=== PATIENT | female | born 1990 | race Caucasian/White ===

== ENCOUNTER 2018-09-08 12:01 | Emergency (ER) | payer MEDICAID ==
[~2018-09-08] VITALS: Ht 162.6 cm; Wt 54.5 kg
[2018-09-08 12:16] VITALS: TEMP 97.4
[2018-09-08 13:42] LABS: COLLECTION METHOD CLEAN CATCH
[2018-09-08 13:50] LABS: PH 5 (5-8); SQUAMOUS EPITHELIAL 0-2 /hpf; URINE APPEARANCE Clear; URINE BACTERIA None Seen /hpf; URINE BILIRUBIN Negative (NEGATIVE); URINE BLOOD Negative (NEGATIVE); URINE COLOR Yellow; URINE GLUCOSE Negative (NEGATIVE); URINE KETONE Negative (NEGATIVE); URINE LEUKOCYTE ESTERASE Negative (NEGATIVE); URINE NITRATE Negative (NEGATIVE); URINE PROTEIN(semi-quant) Negative (NEGATIVE); URINE RBC 0-2 /hpf; URINE UROBILINOGEN Negative (NEGATIVE)
[2018-09-08 17:12] VITALS: BP 112/73; PULSE 58
== END 2018-09-08 17:12 | disposition home or self-care (01) ==
LOC: COL.ER 12:01
PROVIDERS: Nurse Practitioner Primary Care
DX: R10.2 Pelvic and perineal pain (principal)

== ENCOUNTER 2018-10-08 19:41 | Emergency (ER) | payer MEDICAID ==
[~2018-10-08] VITALS: Ht 162.6 cm; Wt 54.5 kg
[2018-10-08 19:43] VITALS: TEMP 97.7
[2018-10-08 20:41] LABS: COLLECTION METHOD CLEAN CATCH
[2018-10-08 21:00] LABS: PH 8 (5-8); SQUAMOUS EPITHELIAL 0-2 /hpf; URINE APPEARANCE Clear; URINE BACTERIA None Seen /hpf; URINE BILIRUBIN Negative (NEGATIVE); URINE BLOOD Negative (NEGATIVE); URINE COLOR Yellow; URINE GLUCOSE Negative (NEGATIVE); URINE KETONE Negative (NEGATIVE); URINE LEUKOCYTE ESTERASE Negative (NEGATIVE); URINE NITRATE Negative (NEGATIVE); URINE PROTEIN(semi-quant) Negative (NEGATIVE); URINE RBC None Seen /hpf; URINE UROBILINOGEN Negative (NEGATIVE)
[2018-10-08 21:37] VITALS: BP 111/76; PULSE 74
== END 2018-10-08 21:38 | disposition home or self-care (01) ==
LOC: COL.ER 19:41
PROVIDERS: Nurse Practitioner
DX: R10.2 Pelvic and perineal pain (principal); Z88.0 Allergy status to penicillin

== ENCOUNTER 2018-12-11 17:17 | Emergency (ER) | payer MEDICAID ==
[~2018-12-11] VITALS: Ht 162.6 cm; Wt 50.9 kg
[2018-12-11 17:36] VITALS: TEMP 98.6
[2018-12-11] MEDS ORDERED: ALBENZA200 M1 PO (20:26)
[2018-12-11 21:10] VITALS: BP 134/82; PULSE 82
== END 2018-12-11 21:04 | disposition home or self-care (01) ==
LOC: COL.ER 17:17
DX: Z20.7 Contact with and (suspected) exposure to pediculosis, acariasis and other infestations (principal); Z88.0 Allergy status to penicillin